=== PATIENT | male | born 1960 | race African-American/Black ===

== ENCOUNTER 2020-11-25 07:55 | Emergency (ER) | payer MEDICAID ==
[~2020-11-25] VITALS: Ht 172.7 cm; Wt 75.0 kg
[2020-11-25] MEDS ORDERED: KETOROLAC 60MG/2ML VIAL IM ONE (08:15)
[2020-11-25 08:31] VITALS: BP 138/82
== END 2020-11-25 08:32 | disposition home or self-care (01) ==
LOC: ER 07:55
DX: F14.10 Cocaine abuse, uncomplicated (principal); M25.551 Pain in right hip; Z76.0 Encounter for issue of repeat prescription; Z86.59 Personal history of other mental and behavioral disorders
CPT/HCPCS: 96372; 99283; J1885